=== PATIENT | female | born 2005 | race Two or more races ===

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

== ENCOUNTER 2024-03-21 19:23 | Emergency (ER) | payer MEDICAID ==
[2024-03-21 19:34] VITALS: BP 144/85; PULSE 112
== END 2024-03-21 20:15 | disposition home or self-care (01) ==
LOC: CC.ED 19:23
DX: O99.891 Other specified diseases and conditions complicating pregnancy (principal); R55 Syncope and collapse; O9A.211 Injury, poisoning and certain other consequences of external causes complicating pregnancy, first trimester; S09.90XA Unspecified injury of head, initial encounter; Z79.899 Other long term (current) drug therapy; Z3A.13 13 weeks gestation of pregnancy; W19.XXXA Unspecified fall, initial encounter; W22.8XXA Striking against or struck by other objects, initial encounter
CPT/HCPCS: 99283; 99284